=== PATIENT | male | born 1980 | race Caucasian/White ===

== ENCOUNTER 2017-01-24 23:30 | Emergency (ER) | payer MEDICAID, MEDICARE ==
[2017-01-24 23:49] VITALS: BP 139/74
[2017-01-25] MEDS ORDERED: DIPH/PERTUSS(ACELL)/TETANUS VAC/PF 0.5 ML SYR (>=10YO) IM ONE (02:50)
--- NOTE | 2017-01-25 02:52 | ER Document Report ---
ED General - General Chief Complaint: Foot Injury Stated Complaint: LEFT FOOT INJURY Notes: Patient is a pleasant 37-year-old male who presents with complaint of pain in left foot after a 50 pound he fell onto. He is too small lacerations on the dorsum of the foot. He says it hurts to bear weight. He is able to move his toes. He has good distal sensation. He denies any other injuries. TRAVEL OUTSIDE OF THE [place] IN LAST 30 DAYS: No Past Medical History - Social History Smoking Status: Never Smoker Frequency of alcohol use: None Drug Abuse: None Family History: Reviewed & Not Pertinent Renal/ Medical History: Denies: Hx Peritoneal Dialysis Review of Systems - Review of Systems Notes: My Normal Review Basic REVIEW OF SYSTEMS: CONSTITUTIONAL : Denies fever, chills, or sweats. Denies recent illness. MUSCULOSKELETAL: Pain over dorsum of left foot. SKIN: Denies rash or skin lesions. NEUROLOGICAL: Denies sensory or motor loss. ALL OTHER SYSTEMS REVIEWED AND NEGATIVE. Physical Exam - Vital signs Vitals: Temp Pulse BP Pulse Ox 98.9 F 67 139/74 H 99 01/24/17 23:48 01/24/17 23:48 01/24/17 23:48 01/24/17 23:48 - Notes Notes: General Appearance: Well nourished, alert, cooperative, no acute distress, mild obvious discomfort. Vitals: reviewed, See vital signs table. Extremities: strength 5/5 in all extremities, good pulses in all extremities, pain to palpation of the dorsum of left foot. Patient does have 2 very small superficial lacerations over the dorsum of left foot. Mild active venous bruising. No surrounding erythema. No edema. Good capillary refill in all toes. Skin: warm, dry, appropriate color, no rash Neuro: speech clear, oriented x 3, normal affect, responds appropriately to questions. Course - Vital Signs Vital signs: Temp Pulse Resp BP Pulse Ox 98.9 F 67 139/74 H 99 01/24/17 23:48 01/24/17 23:48 01/24/17 23:48 01/24/17 23:48 - Transfer of Care Notes: 01/25/17 04:20 Patient had 2 very small superficial lacerations over the dorsum of the foot. These were thoroughly irrigated. They're clean with chlorhexidine. They're then closed the door bone. Patient tolerated this well. X-ray shows no evidence of fracture. Patient still has pain with weightbearing and therefore will be given crutches. Patient's encourage follow closely with his primary care doctor. Encouraged return to ER immediately if has any redness, increased swelling, fevers, or signs of infection. Patient agrees with plan and will be discharged home. Dictation of this chart was performed using voice recognition software; therefore, there may be some unintended grammatical errors. Procedures - Laceration/Wound Repair left foot Wound length (cm): 1 Wound's Depth, Shape: Superficial, Linear Wound explored: Clean Irrigated w/ Saline (mLs): 20 Wound Repaired With: Dermabond Post-procedure NV exam normal: Yes Complications: No Discharge - Discharge Clinical Impression: Laceration Foot contusion Qualifiers: Encounter type: initial encounter Laterality: left Qualified Code(s): S90.32XA - Contusion of left foot, initial encounter Condition: Good Disposition: HOME, SELF-CARE Additional Instructions: Please use the crutches until you can bear weight on your foot without significant pain. Please return to the ER immediately if you develop redness, increased swelling, or any signs of infection in your foot. Forms: Return to Work Referrals: ALTAGRACIA JORDAN MD [Primary Care Provider] - Follow up in 3-5 days
== END 2017-01-25 04:30 | disposition home or self-care (01) ==
LOC: ER 23:30
DX: S91.312A Laceration without foreign body, left foot, initial encounter (principal); W20.8XXA Other cause of strike by thrown, projected or falling object, initial encounter
CPT/HCPCS: 99283

== ENCOUNTER 2018-09-10 07:43 | Inpatient (IN) | payer SELFPAY ==
[2018-09-10] MEDS ORDERED: IPRATROPIUM/ALBUTEROL 0.5-2.5 MG/3 ML AMPUL NEB ONE (08:30)
[2018-09-10] MEDS ORDERED: ACETAMINOPHEN WITH CODEINE #3 TABLET PO ONE (08:30)
[2018-09-10] MEDS ORDERED: DEXAMETHASONE SOD PHOS INJ 10 MG/1 ML VIAL IV ONE (08:31)
--- NOTE | 2018-09-10 08:38 | ER Document Report ---
ED Respiratory Problem - General Chief Complaint: Nausea/Vomiting/Diarrhea Stated Complaint: COUGH/CONGESTION/CHILLS/VOMITING Time Seen by Provider: 09/10/18 08:16 Mode of Arrival: Ambulatory Information source: Patient, Relative Notes: Patient is a 38-year-old male comes emergency room with a 5-day onset of feeling bad. Patient is even having a hard time talking currently because when he talks he gets into coughing fits. He also has some difficult time swallowing. He states that he started feeling sick on Wednesday he got a lot worse but Wednesday it hit him with major complications. On Wednesday he started with vomiting after coughing and then had a diarrhea today. He has a productive yellow cough. states that they did not have a thermometer at home but he has felt hot and you could feel the heat radiating from his body for the last several days. In triage patient had a temp of 100.5. He has not received any medication for fever. He also states his been unable to eat anything in the past 48 hours he is only had 4 crackers. He does smoke 2 packs of cigarettes a day and in the past 3 days he has not even had been able to do one cigarette. He is attempted to use [id number] medications like DayQuil NyQuil combination. And patient has received the influenza vaccine for this year. As stated patient also complained of having difficulty swallowing too. TRAVEL OUTSIDE OF THE [place] IN LAST 30 DAYS: No - HPI Patient complains to provider of: Cough, Hurts to breath, Short of breath Onset: Other - 5 days Duration: Continuous, Worse/persistent Initiating Event: Exposure to dust Quality of pain: Achy Severity: Moderate Pain Level: 3 Context: Smoker Short of Breath: Moderate Chest pain/discomfort: Worse with deep breaths Cough: Productive Sputum amount: Moderate Sputum color: Yellow Sputum consistency: Thick Similar symptoms previously: Yes Recently seen / treated by doctor: No - Related Data Allergies/Adverse Reactions: No Known Allergies Allergy (Unverified 09/10/18 07:49) Past Medical History - General Information source: Patient - Social History Smoking Status: Current Every Day Smoker Cigarette use (# per day): Yes Chew tobacco use (# tins/day): No - 2 packs of cigarettes a day Smoking Education Provided: Yes Frequency of alcohol use: Occasional Drug Abuse: None Lives with: Family Family History: Reviewed & Not Pertinent Patient has suicidal ideation: No Patient has homicidal ideation: No Renal/ Medical History: Denies: Hx Peritoneal Dialysis Review of Systems - Review of Systems Constitutional: Fever, Malaise, Weakness EENT: Nose congestion, Nose discharge, Sinus pressure, Sinus discharge, Throat pain, Difficulty swallowing Cardiovascular: No symptoms reported Respiratory: See HPI, Cough, Hurts to breathe, Short of breath, Wheezing Gastrointestinal: Diarrhea, Vomiting Genitourinary: No symptoms reported Male Genitourinary: No symptoms reported Musculoskeletal: No symptoms reported Skin: No symptoms reported Hematologic/Lymphatic: No symptoms reported Neurological/Psychological: No symptoms reported -: Yes All other systems reviewed and negative Physical Exam - Vital signs Vitals: Temp Pulse Resp BP Pulse Ox 100.5 F H 93 20 134/81 H 94 09/10/18 07:55 09/10/18 07:55 09/10/18 07:55 09/10/18 07:55 09/10/18 07:55 Interpretation: Hypertensive - Notes Notes: PHYSICAL EXAMINATION: GENERAL: Patient is a well-nourished well-developed 38-year-old male who is in no apparent distress on physical exam today however he does appear to be ill. Patient is so uncomfortable he does not want to talk and his does most of the talking for him. HEAD: Atraumatic, normocephalic. EYES: Pupils equal round and reactive to light, extraocular movements intact, sclera anicteric, conjunctiva are normal. ENT: Examination head and upper airway showed nasal mucosa to be moderately erythematous and edematous with some congestion in bilateral nares. Small amount of clear rhinorrhea noted. He also displays some mild frontal and maxillary sinus tenderness to palpation. Bilateral TMs bulging there is some mild cerumen in the external canal and the TMs are bulging with some minimal air -fluid levels noted. Examination of the oropharynx shows the posterior pharynx to be moderately erythematous the uvula is midline and erythematous with some edema. Visualization of the right tonsil show it to be very prominent with a superior pustule or exudate appearance. The exudate only appears in this 1 area. The tonsil appears to be bulging and no folds are seen at this time on the tonsil. It is a big round pustule type presentation. The left side appears normal. Consideration of a peritonsillar abscess is deemed appropriate at this time. The airway is currently patent. NECK: Normal range of motion, supple, patient displays some mild bilateral anterior cervical lymphadenopathy to palpation. Some mild tenderness on the lymph nodes themselves. There is no postauricular lymph nodes noted. LUNGS: Auscultation of patient's lung [place] shows he has bilateral breath sounds breath sounds are decreased throughout all lung [place]. He has some faint inspiratory expiratory wheeze more in the upper lobes bilaterally. There is no coarse rhonchi heard at this time. There is no rales noted. HEART: Regular rate and rhythm without murmurs ABDOMEN: Examination of the abdomen shows patient has bowel sounds in all 4 quads. He is nontender to palpation or percussion in any quadrant. He is moderately distended and has some tympany noted in the upper quads. This is in the supine position. Musculoskeletal: Normal range of motion, no pitting or edema. No cyanosis. NEUROLOGICAL: Normal speech, normal gait. Normal sensory, motor exams PSYCH: Normal mood, normal affect. SKIN: Warm, Dry, normal turgor, no rashes or lesions noted. Course - Re-evaluation Re-evalutation: 09/10/18 08:43 As stated in the HPI concerned there may be a few different comorbidities occurring here. Most notable of these is the possibility of a peritonsillar abscess on the right side. This could just be a presentation of strep but with the total enlargement of the right one almost touching the uvula and the left one being normal size and leaving airway patent want to make sure. Also patient having the inspiratory expiratory wheeze no focal abnormalities were heard on the auscultation of the lungs however given a 2 pack-a-day smoking with the wheeze and fever and productive yellow cough that is thick I highly considered for pneumonia. 09/10/18 12:41 I have talked to Dr. Bell my attending for today after receiving the news back the patient CT showed of the soft tissue of the neck and asymmetric mild enlargement of the right pontine tonsil without a rim-enhancing fluid collection to suggest abscess. Then secondary it is a groundglass opacities of visualized lung apices which may be secondary to infectious or inflammatory etiologies. Coupled out with the chest x-ray which shows a left lower lung opacity which may represent pneumonia in the appropriate clinical setting and patient has 3 possible areas of pneumonia versus inflammatory process he also has a tonsillitis at minimum and this is a gentleman I would not expect to come to the hospital unless he felt like he had one foot on deaths door. Given these findings she suggested we contact the hospitalist to see if we can get him admitted for inpatient therapy. This I did after going into spending the time with the patient and his discussing the options of being treated in house or out patient what they may look for is far as outcomes even offering them the ability to go outpatient first and patient contacted his mother who demanded that he come in and he is listening to his mother. So I did call the hospitalist and the have accepted patient's admission and will be down to see him in a little bit. - Vital Signs Vital signs: Temp Pulse Resp BP Pulse Ox 100.5 F H 93 20 134/81 H 94 09/10/18 07:55 09/10/18 07:55 09/10/18 07:55 09/10/18 07:55 09/10/18 07:55 - Laboratory Result Diagrams: 09/10/18 08:10 09/10/18 08:10 Laboratory results interpreted by me: 09/10/18 08:10 Potassium 3.4 L Chloride 94 L Carbon Dioxide 32 H Glucose 155 H Direct Bilirubin 0.5 H AST 73 H Discharge - Discharge Clinical Impression: Tonsillitis Pneumonia Qualifiers: Pneumonia type: due to unspecified organism Laterality: bilateral Lung location : unspecified part of lung Qualified Code(s): J18.9 - Pneumonia, unspecified organism Condition: Stable Disposition: ADMITTED INPATIENT Admitting Provider: Hospitalist Unit Admitted: Medical Floor Referrals: ALTAGRACIA JODRAN MD [HONORARY] - Follow up as needed
[2018-09-10 08:47] LABS: ABSOLUTE LYMPHOCYTES (AUTO) 1.4 10^3/uL (0.5-4.7); ABSOLUTE MONOCYTES (AUTO) 0.8 10^3/uL (0.1-1.4); ABSOLUTE NEUT (AUTO) 6.1 10^3/uL (1.7-8.2); BASOPHILS % (AUTO) 0.3 % (0-2); EOSINOPHILS % (AUTO) 0.4 % (0-6); HEMATOCRIT 44.9 % (37.9-51.0); LYMPHOCYTES % (AUTO) 16.6 % (13-45); MEAN CORPUSCULAR HEMOGLOBIN 30.3 pg (27.0-33.4); MEAN CORPUSCULAR HGB CONC 35.5 g/dL (32.0-36.0); MEAN CORPUSCULAR VOLUME 85 fl (80-97); MONOCYTES % (AUTO) 9.5 % (3-13); PLATELET COUNT 237 10^3/uL (150-450); RED BLOOD COUNT 5.27 10^6/uL (4.35-5.55); RED CELL DISTRIBUTION WIDTH 13.6 % (11.5-14.0); SEGMENTED NEUTROPHILS % (AUTO) 73.2 % (42-78); TOTAL CELLS COUNTED % (AUTO) 100 %; WHITE BLOOD COUNT 8.4 10^3/uL (4.0-10.5)
[2018-09-10 08:55] LABS: ALANINE AMINOTRANSFERASE 56 U/L (21-72); ALBUMIN 4.2 g/dL (3.5-5.0); ALKALINE PHOSPHATASE 77 U/L (38-126); ANION GAP 14 (5-19); ASPARTATE AMINO TRANSFERASE 73 U/L (17-59); BILIRUBIN,DIRECT 0.5 mg/dL (0.0-0.4); BILIRUBIN,TOTAL 1.3 mg/dL (0.2-1.3); BLOOD UREA NITROGEN 16 mg/dL (7-20); CALCIUM 9.5 mg/dL (8.4-10.2); CARBON DIOXIDE 32 mmol/L (22-30); CHLORIDE 94 mmol/L (98-107); GLUCOSE 155 mg/dL (75-110); POTASSIUM 3.4 mmol/L (3.6-5.0); SODIUM 140.3 mmol/L (137-145); TOTAL PROTEIN 7.5 g/dL (6.3-8.2)
--- NOTE | 2018-09-10 09:51 | RADIOLOGY REPORT (SQ) ---
EXAM DESCRIPTION: CT SOFT TISSUE NECK WITH COMPLETED DATE/TIME: 09/10/2018 9:30 am REASON FOR STUDY: ? right sided peritonsillar abscess COMPARISON: None. TECHNIQUE: Post IV contrasted scanning from skull base through lung apices with review of bone, soft tissue and lung windows. Reconstructed coronal and sagittal MPR images reviewed. All images stored on PACS. All CT scanners at this facility use dose modulation, iterative reconstruction, and/or weight based d osing when appropriate to reduce radiation dose to as low as reasonably achievable (ALARA). [facility]: Dose Right [facility]: CareDose [facility]: Dose Right [facility]: Teradose 4D [facility]: [employer]Home CONTRAST TYPE AND DOSE: contrast/concentration: Isovue 350.00 mg/ml; Total Contrast Delivered: 75.0 ml; Total Saline Delivered: 55.0 ml 75 mL IV of Omnipaque 350- low osmolar. RENAL FUNCTION: None required. The patient is less than 50 years old. RADIATION DOSE: CT Rad equipment meets quality standard of care and radiation dose reduction techniq ues were employed. CTDIvol: 18.5 mGy. DLP: 611 mGy-cm. . LIMITATIONS: Motion degraded exam. Metallic artifact from patient's dental hardware. FINDINGS: SKULL BASE: Intact. MAJOR SALIVARY GLANDS: No solid or cystic masses. No inflammatory changes. LYMPHADENOPATHY: Mildly asymmetric enlargement of the right palatine tonsil (series 3, image 46). N o rim enhancing fluid collection to suggest abscess. No adenopathy. MUCOSAL MASSES OR ASYMMETRY: No mucosal masses or asymmetry. LARYNX/CORDS: No abnormal findings. VASCULAR STRUCTURES: The major vessels are patent. LUNG APICES: Patchy biapical ground-glass opacities, left more pronounced than right. BONES: Intact. THYROID: Normal size. No masses. PARANASAL SINUSES: Clear. OTHER: No other significant finding. IMPRESSION: 1. Nonspecific asymmetric mild enlargement of the right palatine tonsil without a rim enhancing fluid collection to suggest abscess. 2. Ground-glass opacities of visualized lung apices which may be secondary to infectious or inflammat ory etiologies. TECHNICAL DOCUMENTATION: JOB ID: [id number] Quality ID # [id number]: Final reports with documentation of one or more dose reduction techniques (e.g., Au tomated exposure control, adjustment of the mA and/or kV according to patient size, use of iterative reconstruction technique) 2010 [employer]- All Rights Reserved Reading location - IP/workstation name: [email or web address]
--- NOTE | 2018-09-10 09:52 | RADIOLOGY REPORT (SQ) ---
EXAM DESCRIPTION: CHEST 2 VIEWS COMPLETED DATE/TIME: 09/10/2018 9:33 am REASON FOR STUDY: cough COMPARISON: Concurrent CT neck and earlier EXAM PARAMETERS: NUMBER OF VIEWS: two views TECHNIQUE: Digital Frontal and Lateral radiographic views of the chest acquired. RADIATION DOSE: NA LIMITATIONS: none FINDINGS: LUNGS AND PLEURA: Upper lobe opacities are better appreciated on the CT of the neck. Wenceslao tional left lower lobe opacity. No pleural effusion or pneumothorax. MEDIASTINUM AND HILAR STRUCTURES: No masses or contour abnormalities. HEART AND VASCULAR STRUCTURES: Heart normal size. No evidence for failure. BONES: No acute findings. HARDWARE: None in the chest. OTHER: No other significant finding. IMPRESSION: 1. Left lower lung opacity which may represent pneumonia in the appropriate clinical setting. 2. Apical lung opacities are not appreciated on this exam as seen on CT of the neck. TECHNICAL DOCUMENTATION: JOB ID: [id number] [employer]- All Rights Reserved Reading location - IP/workstation name: [email or web address]
[2018-09-10 09:54] LABS: A TYPE INFLUENZA AG NEGATIVE (NEGATIVE); B INFLUENZA AG NEGATIVE (NEGATIVE)
[2018-09-10] MEDS ORDERED: CEFTRIAXONE 1 GM/D5W RTU 1 GM/50 ML RTUPB IV ONE (11:39)
[2018-09-10] MEDS ORDERED: NORMAL SALINE 1000 ML 1,000 ML IV ONE (11:40)
[2018-09-10] MEDS ORDERED: ONDANSETRON 4 MG TAB.RAPDIS PO PRN (13:10)
[2018-09-10] MEDS ORDERED: MAG HYDROX/AL HYDROX/SIMETH SUSP 30 ML UDCUP PO PRN (13:10)
[2018-09-10] MEDS ORDERED: TEMAZEPAM 15 MG CAPSULE PO PRN (13:10)
[2018-09-10] MEDS ORDERED: MAGNESIUM HYDROXIDE SUSP 30 ML UDCUP PO PRN (13:10)
[2018-09-10] MEDS ORDERED: ONDANSETRON HCL INJ/PF 4 MG/2 ML SDV IV PRN (13:10)
[2018-09-10] MEDS ORDERED: ACETAMINOPHEN 325 MG TABLET PO PRN (13:19)
[2018-09-10] MEDS ORDERED: ACETAMINOPHEN 650 MG SUPP.RECT PR PRN (13:19)
[2018-09-10] MEDS: IPRATROPIUM BROMIDE 0.02% NEB 0.5 MG/2.5 ML AMPUL NEB SCH (15:38)
[2018-09-10] MEDS: LEVALBUTEROL HCL NEB 1.25 MG/3 ML AMPUL NEB SCH (15:38)
[2018-09-10] MEDS: HEPARIN SOD (PORCINE) 5,000 UNIT/ML 1 ML SYRINGE SUBCUT SCH ×2 (17:08→21:29)
[2018-09-10] MEDS: DOCUSATE SODIUM 100 MG CAPSULE PO SCH (17:11)
[2018-09-10] MEDS: LANSOPRAZOLE 30 MG TAB.RAP.DR PO SCH (17:16)
[2018-09-10] MEDS: LEVOFLOXACIN 750 MG TABLET PO SCH (17:17)
[2018-09-10] MEDS: POTASSI CL 20 MEQ/D5-1/2NS 1L 1,000 ML IV PRN ×2 (17:19→23:00)
[2018-09-10] MEDS ORDERED: NICOTINE 21 MG/24 HR PATCH.TD24 TD PRN (19:20)
[2018-09-10] MEDS: ALBUTEROL SULFATE 0.083% NEB 2.5 MG/3 ML AMPUL NEB PRN (19:25)
[2018-09-10] MEDS: BUDESONIDE NEB 0.5 MG/2 ML AMPUL NEB SCH (19:25)
--- NOTE | 2018-09-10 19:33 | PDOC H&P ---
History of Present Illness Admission Date/PCP: 09/10/18 12:53 MICHELL LAUREN PA-C Patient complains of: Dyspnea History of Present Illness: ROSA CAMERON is a 38 year old male who presented to the emergency room with a 5- day history of progressively worsening dyspnea accompanied by moderate to severe fever, severe generalized malaise and fatigue as well as minimally productive (thin clear to brownish mucus) harsh paroxysmal cough occasionally accompanied by posttussive emesis. He also has developed a severe sore throat and a severe headache over the last 2 days which she associates with his increased coughing. He generally smokes 11/2-2 packs of cigarettes per day and has not been able to smoke for the last 3 days because it makes his dyspnea and cough substantially worse. He rated his dyspnea as severe when he arrived at the emergency room and denied identification of ameliorating factors for his dyspnea and cough. In the emergency room he was found to have a fever 100.5 F and was also noted to have a left lower lobe infiltrate on his chest x-ray as well as right peritonsillar enlargement on exam confirmed by CT scan. With these findings the patient was admitted to the hospital for further evaluation and treatment. Past Medical History Cardiac Medical History: Denies: Coronary Artery Disease, DVT, Hypertension, Heart Murmur Pulmonary Medical History: Denies: Asthma, Chronic Obstructive Pulmonary Disease (COPD) EENT Medical History: Reports: None Neurological Medical History: Denies: Hemorrhagic CVA, Ischemic CVA, Multiple Sclerosis, Seizures Endocrine Medical History: Reports: Obesity Denies: Diabetes Mellitus Type 1, Diabetes Mellitus Type 2, Hyperthyroidism, Hypothyroidism Renal/ Medical History: Denies: Chronic Kidney Disease, Nephrolithiasis Malignancy Medical History: Reports: None GI Medical History: Denies: Cirrhosis, Crohn's Disease, Hepatitis, Peptic Ulcer Disease, Ulcerative Colitis Musculoskeltal Medical History: Denies: Arthritis, Fibromyalgia, Gout Skin Medical History: Denies: Eczema, Psoriasis Psychiatric Medical History: Reports: Depression, Tobacco Dependency Denies: Alcohol Dependency, Substance Abuse Traumatic Medical History: Reports: None Hematology: Denies: Anemia, Bleeding Tendencies Infectious Medical History: Reports: None Past Surgical History Past Surgical History: Reports: None Social History Information Source: Patient Lives with: Family Smoking Status: Smoker,Current Status Unk Frequency of Alcohol Use: Rare Hx Recreational Drug Use: No Drugs: None Hx Prescription Drug Abuse: No - Advance Directive Resuscitation Status: Full Code Surrogate healthcare decision maker:: Family History Family History: CAD, DM, Hypertension Parental Family History Reviewed: Yes Children Family History Reviewed: No Sibling(s) Family History Reviewed.: Yes Medication/Allergy Home Medications: Trazodone HCl [Desyrel 50 mg Tablet] 50 mg PO QHS 09/10/18 Venlafaxine HCl ER [Effexor Xr 75 mg Cap.sr] 75 mg PO DAILY 09/10/18 Allergies/Adverse Reactions: No Known Allergies Allergy (Unverified 09/10/18 07:49) Review of Systems Constitutional: PRESENT: as per HPI, fatigue, fever(s), headache(s), weakness, other - Malaise Eyes: ABSENT: visual disturbances, other - Ocular pain Ears: ABSENT: hearing changes, other - Ear pain Nose, Mouth, and Throat: PRESENT: as per HPI, headache(s), sore throat. ABSENT : mouth pain, vertigo Cardiovascular: PRESENT: dyspnea on exertion. ABSENT: chest pain, edema, orthropnea, palpitations Respiratory: PRESENT: cough, dyspnea, sputum - Thin clear to brownish mucus in small amounts. ABSENT: hemoptysis Gastrointestinal: ABSENT: abdominal pain, constipation, diarrhea, nausea, vomiting Genitourinary: ABSENT: dysuria, hematuria Musculoskeletal: ABSENT: deformity, joint swelling Integumentary: ABSENT: pruritus, rash Neurological: ABSENT: confusion, convulsions, memory loss, tremor(s), vertigo Psychiatric: PRESENT: depression. ABSENT: anxiety, hallucinations Endocrine: ABSENT: cold intolerance, heat intolerance Hematologic/Lymphatic: ABSENT: easy bleeding, easy bruising Allergic/Immunologic: ABSENT: seasonal rhinorrhea, other - Insect bite allergy Physical Exam Vital Signs: Temp Pulse Resp BP Pulse Ox 98.6 F 92 18 136/75 H 92 09/10/18 14:56 09/10/18 15:40 09/10/18 15:40 09/10/18 14:56 09/10/18 15:40 Intake & Output 09/08/18 09/09/18 09/10/18 23:59 23:59 23:59 Intake Total 1000 Balance 1000 Weight 142.428 kg General appearance: PRESENT: no acute distress, cooperative, obese Head exam: PRESENT: atraumatic, normocephalic Eye exam: PRESENT: conjunctiva pink, EOMI. ABSENT: scleral icterus Ear exam: PRESENT: normal external ear exam. ABSENT: bleeding, drainage Mouth exam: PRESENT: neck supple, other - Oral mucosa moist and intact, dentition in fair repair, marked right tonsillar area enlargement. Neck exam: ABSENT: JVD, lymphadenopathy, thyromegaly, tracheal deviation Respiratory exam: PRESENT: decreased breath sounds - Mild decreased breath sounds throughout all [place]., prolonged expiratory phas - Minimally prolonged expiratory phase, symmetrical, unlabored, wheezes - Mild end expiratory wheezes Cardiovascular exam: PRESENT: RRR. ABSENT: clicks, diastolic murmur, gallop, rubs, systolic murmur Pulses: PRESENT: normal radial pulses, normal dorsalis pedis pul Vascular exam: PRESENT: normal capillary refill. ABSENT: pallor GI/Abdominal exam: PRESENT: normal bowel sounds, soft. ABSENT: tenderness Rectal exam: PRESENT: deferred Extremities exam: ABSENT: joint swelling, pedal edema Musculoskeletal exam: PRESENT: full ROM, normal inspection. ABSENT: tenderness Neurological exam: PRESENT: alert, oriented to person, oriented to place, oriented to time, oriented to situation, CN II-XII grossly intact. ABSENT: motor sensory deficit Psychiatric exam: PRESENT: appropriate affect, normal mood Skin exam: PRESENT: dry, intact, warm. ABSENT: jaundice, rash, urticaria Results Impressions: Chest X-Ray 09/10/18 08:28 IMPRESSION: 1. Left lower lung opacity which may represent pneumonia in the appropriate clinical setting. 2. Apical lung opacities are not appreciated on this exam as seen on CT of the neck. Soft Tissue Neck CT 09/10/18 08:30 IMPRESSION: 1. Nonspecific asymmetric mild enlargement of the right palatine tonsil without a rim enhancing fluid collection to suggest abscess. 2. Ground-glass opacities of visualized lung apices which may be secondary to infectious or inflammatory etiologies. Assessment & Plan - Diagnosis (1) Pneumonia Qualifiers: Pneumonia type: due to unspecified organism Laterality: left Lung location: lower lobe of lung Qualified Code(s): J18.1 - Lobar pneumonia, unspecified organism Is this a current diagnosis for this admission?: Yes Plan: Patient is admitted hospital and will be treated with empiric antibiotic therapy utilizing Levaquin 750 mg p.o. daily additionally he will be treated with an aggressive pulmonary toilet utilizing Xopenex, Atrovent, Mucomyst and Pulmicort. He will also receive steroid therapy using prednisone. His fever will be treated with acetaminophen 650 mg p.o. every 4 hours as needed. (2) Tonsillitis Is this a current diagnosis for this admission?: Yes Plan: Patient's tonsillitis will be treated along with his pneumonia utilizing Levaquin 750 mg p.o. daily and prednisone 40 mg daily. (3) Tobacco use disorder, moderate, dependence Is this a current diagnosis for this admission?: Yes Plan: Patient will have available a nicotine patch if he is to use 1 to reduce nicotine cravings. I have advised the patient to discontinue smoking and smoking cessation counseling has been given in the short 3-5-minute counseling session. (4) Obesity (BMI 35.0-39.9 without comorbidity) Is this a current diagnosis for this admission?: Yes Plan: Patient will be encouraged to consider discussing weight loss with his primary care provider. A dietitian will evaluate and adoption counselor the patient on weight loss goals and dietary advice. - Time Time Spent: 30 to 50 Minutes Smoking Cessation Education: 3 to 10 minutes Medications reviewed and adjusted accordingly: Yes Anticipated discharge: Home Within: within 72 hours - Inpatient Certification Based on my medical assessment, after consideration of the patient's comorbidities, presenting symptoms, or acuity I expect that the services needed warrant INPATIENT care.: Yes I certify that my determination is in accordance with my understanding of Medicare's requirements for reasonable and necessary INPATIENT services [42 CFR 412.3e].: Yes Medical Necessity: Significant Comorbidiites Make Outpatient Treatment Too Risky , Need for Nebulizer Therapy and Monitoring of Response
[2018-09-11] MEDS: IPRATROPIUM BROMIDE 0.02% NEB 0.5 MG/2.5 ML AMPUL NEB SCH ×3 (00:32→15:26)
[2018-09-11] MEDS: LEVALBUTEROL HCL NEB 1.25 MG/3 ML AMPUL NEB SCH ×3 (00:32→15:26)
[2018-09-11] MEDS: POTASSI CL 20 MEQ/D5-1/2NS 1L 1,000 ML IV PRN (06:10)
[2018-09-11] MEDS: LANSOPRAZOLE 30 MG TAB.RAP.DR PO SCH ×2 (06:12→17:19)
[2018-09-11] MEDS: HEPARIN SOD (PORCINE) 5,000 UNIT/ML 1 ML SYRINGE SUBCUT SCH ×3 (06:12→21:08)
[2018-09-11 07:02] LABS: ABSOLUTE LYMPHOCYTES (AUTO) 1.2 10^3/uL (0.5-4.7); ABSOLUTE MONOCYTES (AUTO) 0.8 10^3/uL (0.1-1.4); BASOPHILS % (AUTO) 0.1 % (0-2); EOSINOPHILS % (AUTO) 0.1 % (0-6); HEMATOCRIT 45.6 % (37.9-51.0); HEMOGLOBIN 16.1 g/dL (13.5-17.0); LYMPHOCYTES % (AUTO) 9.2 % (13-45); MEAN CORPUSCULAR HEMOGLOBIN 30.1 pg (27.0-33.4); MEAN CORPUSCULAR HGB CONC 35.4 g/dL (32.0-36.0); MEAN CORPUSCULAR VOLUME 85 fl (80-97); MONOCYTES % (AUTO) 5.8 % (3-13); PLATELET COUNT 298 10^3/uL (150-450); RED BLOOD COUNT 5.36 10^6/uL (4.35-5.55); RED CELL DISTRIBUTION WIDTH 13.6 % (11.5-14.0); SEGMENTED NEUTROPHILS % (AUTO) 84.8 % (42-78); TOTAL CELLS COUNTED % (AUTO) 100 %; WHITE BLOOD COUNT 12.9 10^3/uL (4.0-10.5)
[2018-09-11 07:25] LABS: ANION GAP 18 (5-19); BLOOD UREA NITROGEN 13 mg/dL (7-20); CALCIUM 9.8 mg/dL (8.4-10.2); CARBON DIOXIDE 28 mmol/L (22-30); CHLORIDE 99 mmol/L (98-107); GLUCOSE 124 mg/dL (75-110); POTASSIUM 3.5 mmol/L (3.6-5.0); SODIUM 145.1 mmol/L (137-145)
[2018-09-11 07:36] LABS: FREE T3 2.79 pg/mL (2.77-5.27); FREE T4 (FREE THYROXINE) 1.69 ng/dL (0.78-2.19)
[2018-09-11 07:49] LABS: THYROID STIMULATING HORMONE 0.56 uIU/mL (0.47-4.68)
[2018-09-11] MEDS: BUDESONIDE NEB 0.5 MG/2 ML AMPUL NEB SCH ×2 (08:09→20:42)
[2018-09-11] MEDS: PREDNISONE 20 MG TABLET PO SCH (09:15)
[2018-09-11] MEDS: LEVOFLOXACIN 750 MG TABLET PO SCH (09:15)
[2018-09-11] MEDS: DOCUSATE SODIUM 100 MG CAPSULE PO SCH ×2 (09:16→17:40)
[2018-09-11 09:31] LABS: URINE AMPHETAMINES SCREEN NEGATIVE; URINE BARBITURATES SCREEN NEGATIVE; URINE BENZODIAZEPINES SCREEN NEGATIVE; URINE COCAINE SCREEN NEGATIVE; URINE MARIJUANA (THC) SCREEN NEGATIVE; URINE METHADONE SCREEN NEGATIVE; URINE PHENCYCLIDINE SCREEN NEGATIVE
[2018-09-11] MEDS: VENLAFAXINE HCL 75 MG TABLET PO SCH (10:33)
--- NOTE | 2018-09-11 17:45 | PDOC PROGRESS REPORT ---
Subjective Progress Note for:: 09/11/18 Subjective:: ROSA CAMERON is a 38 year old male who presented to the emergency room with a 5- day history of progressively worsening dyspnea accompanied by moderate to severe fever, severe generalized malaise and fatigue as well as minimally productive (thin clear to brownish mucus) harsh paroxysmal cough occasionally accompanied by posttussive emesis. He also has developed a severe sore throat and a severe headache over the last 2 days which she associates with his increased coughing. He generally smokes 11/2-2 packs of cigarettes per day and has not been able to smoke for the last 3 days because it makes his dyspnea and cough substantially worse. He rated his dyspnea as severe when he arrived at the emergency room and denied identification of ameliorating factors for his dyspnea and cough. In the emergency room he was found to have a fever 100.5 F and was also noted to have a left lower lobe infiltrate on his chest x-ray as well as right peritonsillar enlargement on exam confirmed by CT scan. With these findings the patient was admitted to the hospital for further evaluation and treatment. 09/11/2018: Mr. Cameron states he is feeling considerably better today he is breathing and able to get up and go to the bathroom and be active within the room without significant dyspnea. He continues to have mild dyspnea on more significant exertion. His coughing has improved and his sore throat is considerably better. He has not had a posttussive emesis since coming to his hospital bed. He is tolerating the nebulizer therapy and feels as though he is making a significant enough improvement that he could go home today. After his evaluation I have discussed with him the fact that he would probably do better to give treatment here 1 more day and then perhaps we can line up a nebulizer unit for him to use at home and I would be happy to discharge him at that time. Reason For Visit: ACUTE FEBRILE ILLNESS Physical Exam Vital Signs: Temp Pulse Resp BP Pulse Ox 98.3 F 70 18 131/76 H 95 09/11/18 16:00 09/11/18 16:00 09/11/18 16:00 09/11/18 16:00 09/11/18 16:00 Intake & Output 09/09/18 09/10/18 09/11/18 23:59 23:59 23:59 Intake Total 1949 2806 Output Total 300 Balance 1949 2506 Weight 142.428 kg 145.4 kg General appearance: PRESENT: no acute distress, cooperative Head exam: PRESENT: atraumatic, normocephalic Eye exam: PRESENT: conjunctiva pink, EOMI Ear exam: PRESENT: normal external ear exam. ABSENT: drainage Mouth exam: PRESENT: neck supple, other - Oral mucosa is moist and intact dentition is fair Neck exam: ABSENT: JVD, tracheal deviation Respiratory exam: PRESENT: decreased breath sounds - Decreased breath sounds noted throughout all [place]., prolonged expiratory phas - Minimally prolonged expiratory phase is present, rales - Few coarse rales are heard in the left lateral and posterior lung [place], symmetrical, unlabored, wheezes - Mild expiratory wheezes are noted. ABSENT: rhonchi Cardiovascular exam: PRESENT: RRR. ABSENT: clicks, gallop, rubs Vascular exam: PRESENT: normal capillary refill. ABSENT: pallor GI/Abdominal exam: PRESENT: normal bowel sounds, soft Rectal exam: PRESENT: deferred Extremities exam: ABSENT: joint swelling, pedal edema Musculoskeletal exam: PRESENT: ambulatory, full ROM, normal inspection Neurological exam: PRESENT: alert, oriented to person, oriented to place, oriented to time, oriented to situation, CN II-XII grossly intact. ABSENT: motor sensory deficit Psychiatric exam: PRESENT: appropriate affect, normal mood Skin exam: PRESENT: dry, intact, warm Results Laboratory Results: 09/11/18 06:09 09/11/18 06:09 09/11/18 09/11/18 09/11/18 06:09 06:09 06:09 WBC 12.9 H RBC 5.36 Hgb 16.1 Hct 45.6 MCV 85 MCH 30.1 MCHC 35.4 RDW 13.6 Plt Count 298 Seg Neutrophils % 84.8 H Lymphocytes % 9.2 L Monocytes % 5.8 Eosinophils % 0.1 Basophils % 0.1 Absolute Neutrophils 11.0 H Absolute Lymphocytes 1.2 Absolute Monocytes 0.8 Absolute Eosinophils 0.0 Absolute Basophils 0.0 Sodium 145.1 H Potassium 3.5 L Chloride 99 Carbon Dioxide 28 Anion Gap 18 BUN 13 Creatinine 0.76 Est GFR ( Amer) > 60 Est GFR (Non-Af Amer) > 60 Glucose 124 H Calcium 9.8 Magnesium 2.6 H TSH 0.56 Free T4 1.69 Free T3 pg/mL 2.79 Impressions: Chest X-Ray 09/10/18 08:28 IMPRESSION: 1. Left lower lung opacity which may represent pneumonia in the appropriate clinical setting. 2. Apical lung opacities are not appreciated on this exam as seen on CT of the neck. Soft Tissue Neck CT 09/10/18 08:30 IMPRESSION: 1. Nonspecific asymmetric mild enlargement of the right palatine tonsil without a rim enhancing fluid collection to suggest abscess. 2. Ground-glass opacities of visualized lung apices which may be secondary to infectious or inflammatory etiologies. Assessment & Plan - Diagnosis (1) Pneumonia Qualifiers: Pneumonia type: due to unspecified organism Laterality: left Lung location: lower lobe of lung Qualified Code(s): J18.1 - Lobar pneumonia, unspecified organism Is this a current diagnosis for this admission?: Yes Plan: Patient is admitted hospital and will be treated with empiric antibiotic therapy utilizing Levaquin 750 mg p.o. daily additionally he will be treated with an aggressive pulmonary toilet utilizing Xopenex, Atrovent, Mucomyst and Pulmicort. He will also receive steroid therapy using prednisone. His fever will be treated with acetaminophen 650 mg p.o. every 4 hours as needed. (2) Tonsillitis Is this a current diagnosis for this admission?: Yes Plan: Patient's tonsillitis will be treated along with his pneumonia utilizing Levaquin 750 mg p.o. daily and prednisone 40 mg daily. (3) Tobacco use disorder, moderate, dependence Is this a current diagnosis for this admission?: Yes Plan: Patient will have available a nicotine patch if he is to use 1 to reduce nicotine cravings. I have advised the patient to discontinue smoking and smoking cessation counseling has been given in the short 3-5-minute counseling session. (4) Obesity (BMI 35.0-39.9 without comorbidity) Is this a current diagnosis for this admission?: Yes Plan: Patient will be encouraged to consider discussing weight loss with his primary care provider. A dietitian will evaluate and vocational rehabilitation counselor the patient on weight loss goals and dietary advice. - Time Time Spent with patient: 15-24 minutes Medications reviewed and adjusted accordingly: Yes Anticipated discharge: Home Within: within 24 hours
[2018-09-11] MEDS: ALBUTEROL SULFATE 0.083% NEB 2.5 MG/3 ML AMPUL NEB PRN (20:42)
[2018-09-11] MEDS ORDERED: TRAZODONE HCL 50 MG TABLET PO SCH (22:00)
[2018-09-12] MEDS: IPRATROPIUM BROMIDE 0.02% NEB 0.5 MG/2.5 ML AMPUL NEB SCH ×2 (00:26→07:46)
[2018-09-12] MEDS: LEVALBUTEROL HCL NEB 1.25 MG/3 ML AMPUL NEB SCH ×2 (00:26→07:46)
[2018-09-12] MEDS: HEPARIN SOD (PORCINE) 5,000 UNIT/ML 1 ML SYRINGE SUBCUT SCH ×2 (05:07→12:59)
[2018-09-12 05:29] LABS: ABSOLUTE LYMPHOCYTES (AUTO) 2.3 10^3/uL (0.5-4.7); ABSOLUTE MONOCYTES (AUTO) 0.5 10^3/uL (0.1-1.4); ABSOLUTE NEUT (AUTO) 6.3 10^3/uL (1.7-8.2); BASOPHILS % (AUTO) 0.2 % (0-2); EOSINOPHILS % (AUTO) 0.4 % (0-6); HEMATOCRIT 42.4 % (37.9-51.0); HEMOGLOBIN 14.8 g/dL (13.5-17.0); LYMPHOCYTES % (AUTO) 24.9 % (13-45); MEAN CORPUSCULAR HEMOGLOBIN 30.3 pg (27.0-33.4); MEAN CORPUSCULAR VOLUME 87 fl (80-97); MONOCYTES % (AUTO) 5.8 % (3-13); PLATELET COUNT 298 10^3/uL (150-450); RED CELL DISTRIBUTION WIDTH 13.6 % (11.5-14.0); SEGMENTED NEUTROPHILS % (AUTO) 68.7 % (42-78); TOTAL CELLS COUNTED % (AUTO) 100 %; WHITE BLOOD COUNT 9.1 10^3/uL (4.0-10.5)
[2018-09-12 06:04] LABS: ANION GAP 14 (5-19); BLOOD UREA NITROGEN 14 mg/dL (7-20); CALCIUM 9.4 mg/dL (8.4-10.2); CARBON DIOXIDE 30 mmol/L (22-30); CHLORIDE 102 mmol/L (98-107); GLUCOSE 105 mg/dL (75-110); POTASSIUM 3.9 mmol/L (3.6-5.0); SODIUM 145.7 mmol/L (137-145)
[2018-09-12] MEDS: BUDESONIDE NEB 0.5 MG/2 ML AMPUL NEB SCH (07:46)
[2018-09-12] MEDS: LANSOPRAZOLE 30 MG TAB.RAP.DR PO SCH (08:36)
[2018-09-12] MEDS: PREDNISONE 20 MG TABLET PO SCH (09:53)
[2018-09-12] MEDS: LEVOFLOXACIN 750 MG TABLET PO SCH (09:54)
[2018-09-12] MEDS: VENLAFAXINE HCL 75 MG TABLET PO SCH (09:55)
[2018-09-12] MEDS: DOCUSATE SODIUM 100 MG CAPSULE PO SCH (09:55)
--- NOTE | 2018-09-12 11:52 | PDOC DISCHARGE SUMMARY ---
General - Admit/Disc Date/PCP Admission Date/Primary Care Provider: 09/10/18 12:53 MICHELL LAUREN PA-C Discharge Date: 09/12/18 - Discharge Diagnosis (1) Pneumonia Is this a current diagnosis for this admission?: Yes Summary: Patient is admitted hospital and will be treated with empiric antibiotic therapy utilizing Levaquin 750 mg p.o. daily additionally he will be treated with an aggressive pulmonary toilet utilizing Xopenex, Atrovent, Mucomyst and Pulmicort. He will also receive steroid therapy using prednisone. His fever will be treated with acetaminophen 650 mg p.o. every 4 hours as needed. (2) Tonsillitis Is this a current diagnosis for this admission?: Yes Summary: Patient's tonsillitis will be treated along with his pneumonia utilizing Levaquin 750 mg p.o. daily and prednisone 40 mg daily. (3) Tobacco use disorder, moderate, dependence Is this a current diagnosis for this admission?: Yes Summary: Patient will have available a nicotine patch if he is to use 1 to reduce nicotine cravings. I have advised the patient to discontinue smoking and smoking cessation counseling has been given in the short 3-5-minute counseling session. (4) Obesity (BMI 35.0-39.9 without comorbidity) Is this a current diagnosis for this admission?: Yes Summary: Patient will be encouraged to consider discussing weight loss with his primary care provider. A dietitian will evaluate and vp & general counsel the patient on weight loss goals and dietary advice. - Additional Information Resuscitation Status: Full Code Discharge Diet: Regular Discharge Activity: Activity As Tolerated, Walk Frequently Prescriptions: Ipratropium [place] [Atrovent 0.02% Neb 0.5 mg/2.5 ml Ampul] 0.5 mg NEB TID 10 Days #30 vial.neb Levalbuterol HCl [Xopenex Neb 1.25 mg/3 ml Ampul] 1.25 mg NEB TID 10 Days #30 vial.neb Levofloxacin [Levaquin 750 mg Tablet] 750 mg PO DAILY 4 Days #4 tablet Prednisone [Deltasone 20 mg Tablet] 40 mg PO PCBRKFST 2 Days #4 tablet Home Medications: Trazodone HCl [Desyrel 50 mg Tablet] 50 mg PO QHS 09/10/18 Venlafaxine HCl ER [Effexor Xr 75 mg Cap.sr] 75 mg PO DAILY 09/10/18 Ipratropium [place] [Atrovent 0.02% Neb 0.5 mg/2.5 ml Ampul] 0.5 mg NEB TID 10 Days #30 vial.neb 09/12/18 Levalbuterol HCl [Xopenex Neb 1.25 mg/3 ml Ampul] 1.25 mg NEB TID 10 Days #30 vial.neb 09/12/18 Levofloxacin [Levaquin 750 mg Tablet] 750 mg PO DAILY 4 Days #4 tablet 09/12/18 Prednisone [Deltasone 20 mg Tablet] 40 mg PO PCBRKFST 2 Days #4 tablet 09/12/18 History of Present Illness Patient complains of: Dyspnea History of Present Illness: ROSA ASH is a 38 year old male who presented to the emergency room with a 5- day history of progressively worsening dyspnea accompanied by moderate to severe fever, severe generalized malaise and fatigue as well as minimally productive (thin clear to brownish mucus) harsh paroxysmal cough occasionally accompanied by posttussive emesis. He also has developed a severe sore throat and a severe headache over the last 2 days which she associates with his increased coughing. He generally smokes 11/2-2 packs of cigarettes per day and has not been able to smoke for the last 3 days because it makes his dyspnea and cough substantially worse. He rated his dyspnea as severe when he arrived at the emergency room and denied identification of ameliorating factors for his dyspnea and cough. In the emergency room he was found to have a fever 100.5 F and was also noted to have a left lower lobe infiltrate on his chest x-ray as well as right peritonsillar enlargement on exam confirmed by CT scan. With these findings the patient was admitted to the hospital for further evaluation and treatment. Hospital Course Hospital Course: 09/11/2018: Mr. Ash states he is feeling considerably better today he is breathing and able to get up and go to the bathroom and be active within the room without significant dyspnea. He continues to have mild dyspnea on more significant exertion. His coughing has improved and his sore throat is considerably better. He has not had a posttussive emesis since coming to his hospital bed. He is tolerating the nebulizer therapy and feels as though he is making a significant enough improvement that he could go home today. After his evaluation I have discussed with him the fact that he would probably do better to give treatment here 1 more day and then perhaps we can line up a nebulizer unit for him to use at home and I would be happy to discharge him at that time. Physical Exam Vital Signs: Temp Pulse Resp BP Pulse Ox 98.1 F 61 20 137/76 H 96 09/12/18 08:00 09/12/18 08:00 09/12/18 08:00 09/12/18 08:00 09/12/18 08:00 Intake & Output 09/10/18 09/11/18 09/12/18 23:59 23:59 23:59 Intake Total 1948 3397 236 Output Total 300 Balance 1948 3097 236 Weight 142.428 kg 145.4 kg General appearance: PRESENT: no acute distress, cooperative, obese Head exam: PRESENT: atraumatic, normocephalic Eye exam: PRESENT: conjunctiva pink, EOMI Ear exam: PRESENT: normal external ear exam Mouth exam: PRESENT: neck supple Respiratory exam: PRESENT: clear to auscultation delisa, decreased breath sounds - Mildly decreased breath sounds throughout all [place], symmetrical, unlabored Cardiovascular exam: PRESENT: RRR. ABSENT: clicks, gallop, rubs Vascular exam: PRESENT: normal capillary refill GI/Abdominal exam: PRESENT: normal bowel sounds, soft Rectal exam: PRESENT: deferred Extremities exam: ABSENT: joint swelling, pedal edema Musculoskeletal exam: PRESENT: ambulatory, full ROM, normal inspection Neurological exam: PRESENT: alert, oriented to person, oriented to place, oriented to time, oriented to situation, CN II-XII grossly intact. ABSENT: motor sensory deficit Psychiatric exam: PRESENT: appropriate affect, normal mood Skin exam: PRESENT: dry, intact, warm Results Laboratory Results: 09/12/18 04:44 09/12/18 04:44 09/12/18 09/12/18 04:44 04:44 WBC 9.1 RBC 4.90 Hgb 14.8 Hct 42.4 MCV 87 MCH 30.3 MCHC 35.0 RDW 13.6 Plt Count 298 Seg Neutrophils % 68.7 Lymphocytes % 24.9 Monocytes % 5.8 Eosinophils % 0.4 Basophils % 0.2 Absolute Neutrophils 6.3 Absolute Lymphocytes 2.3 Absolute Monocytes 0.5 Absolute Eosinophils 0.0 Absolute Basophils 0.0 Sodium 145.7 H Potassium 3.9 Chloride 102 Carbon Dioxide 30 Anion Gap 14 BUN 14 Creatinine 0.82 Est GFR ( Amer) > 60 Est GFR (Non-Af Amer) > 60 Glucose 105 Calcium 9.4 Magnesium 2.5 H Impressions: Chest X-Ray 09/10/18 08:28 IMPRESSION: 1. Left lower lung opacity which may represent pneumonia in the appropriate clinical setting. 2. Apical lung opacities are not appreciated on this exam as seen on CT of the neck. Soft Tissue Neck CT 09/10/18 08:30 IMPRESSION: 1. Nonspecific asymmetric mild enlargement of the right palatine tonsil without a rim enhancing fluid collection to suggest abscess. 2. Ground-glass opacities of visualized lung apices which may be secondary to infectious or inflammatory etiologies. Qualifiers - * PATIENT BEING DISCHARGED WITH ANY OF THE FOLLOWING DIAGNOSIS: No Plan Discharge Plan: Discharged home in improved and stable condition Time Spent: Greater than 30 Minutes
[2018-09-12 12:07] VITALS: BP 124/71
[2018-09-12] MEDS ORDERED: ONDANSETRON HCL INJ/PF 4 MG/2 ML SDV IV PRN (15:00)
[2018-09-12] MEDS ORDERED: ONDANSETRON 4 MG TAB.RAPDIS PO PRN (15:00)
[2018-09-12] MEDS ORDERED: LANSOPRAZOLE 30 MG TAB.RAP.DR PO SCH (17:00)
== END 2018-09-12 13:52 | disposition home or self-care (01) | DRG 195 ==
LOC: ER 07:43 → EH 12:53 → 5 14:54
PROVIDERS: ADMIT Hospitalist; ATTEND Hospitalist
PROC: 3E0F73Z Introduction of Anti-inflammatory into Respiratory Tract, Via Natural or Artificial Opening (ICD-10-PCS; principal; 2018-09-10)
DX: J18.1 Lobar pneumonia, unspecified organism (principal); J03.90 Acute tonsillitis, unspecified; F17.210 Nicotine dependence, cigarettes, uncomplicated; E66.9 Obesity, unspecified; Z68.38 Body mass index [BMI] 38.0-38.9, adult; F32.9 Major depressive disorder, single episode, unspecified; Z79.899 Other long term (current) drug therapy; Z83.3 Family history of diabetes mellitus; Z82.49 Family history of ischemic heart disease and other diseases of the circulatory system
CPT/HCPCS: 36415; 70491; 71046; 80048; 80053; 80307; 83036; 83735; 84439; 84443; 84481; 85025; 87040; 87070; 87804; 87880; 94640; 96365; 96375; 99285; J0696; J1100; J3480; J3490; J7030; J7512; J7620

== ENCOUNTER 2018-10-02 14:51 | Emergency (ER) | payer SELFPAY ==
--- NOTE | 2018-10-02 15:17 | ER Document Report ---
ED Medical Screen (RME) - General Chief Complaint: Cough Stated Complaint: SORE THROAT Time Seen by Provider: 10/02/18 15:15 Mode of Arrival: Ambulatory Information source: Patient TRAVEL OUTSIDE OF THE [place] IN LAST 30 DAYS: No - HPI Patient complains to provider of: cough; ST Onset: Other - pt admitted here earlier this month for ?PNA and throat abscess. Pt feels only slightly better and wants re-evaluation. - Related Data Allergies/Adverse Reactions: No Known Allergies Allergy (Verified 10/02/18 14:52) Past Medical History - Past Medical History Cardiac Medical History: Denies: Hx Coronary Artery Disease, Hx DVT, Hx Hypertension, Hx Heart Murmur Pulmonary Medical History: Denies: Hx Asthma, Hx COPD Neurological Medical History: Denies: Hx Seizures Endocrine Medical History: Denies: Hx Diabetes Mellitus Type 1, Hx Diabetes Mellitus Type 2, Hx Hyperthyroidism, Hx Hypothyroidism Renal/ Medical History: Denies: Hx Peritoneal Dialysis GI Medical History: Denies: Hx Cirrhosis, Hx Crohn's Disease, Hx Hepatitis, Hx Ulcerative Colitis Musculoskeltal Medical History: Denies Hx Arthritis, Denies Hx Fibromyalgia, Denies Hx Gout Skin Medical History: Denies Hx Eczema, Denies Hx Psoriasis Psychiatric Medical History: Reports: Hx Depression Infectious Medical History: Denies: Hx Hepatitis Physical Exam - Vital signs Vitals: Temp Pulse Resp BP Pulse Ox 98.4 F 86 16 143/79 H 96 10/02/18 14:55 10/02/18 14:55 10/02/18 14:55 10/02/18 14:55 10/02/18 14:55 Course - Vital Signs Vital signs: Temp Pulse Resp BP Pulse Ox 98.4 F 86 16 143/79 H 96 10/02/18 14:55 10/02/18 14:55 10/02/18 14:55 10/02/18 14:55 10/02/18 14:55 Doctor's Discharge - Discharge Referrals: MICHELL LAUREN PA-C [Primary Care Provider] - Follow up as needed
[2018-10-02 15:37] LABS: ABSOLUTE EOSINOPHILS # (AUTO) 0.1 10^3/uL (0.0-0.6); ABSOLUTE LYMPHOCYTES (AUTO) 2.4 10^3/uL (0.5-4.7); ABSOLUTE MONOCYTES (AUTO) 0.5 10^3/uL (0.1-1.4); ABSOLUTE NEUT (AUTO) 4.7 10^3/uL (1.7-8.2); BASOPHILS % (AUTO) 0.5 % (0-2); EOSINOPHILS % (AUTO) 1.2 % (0-6); HEMATOCRIT 46.6 % (37.9-51.0); HEMOGLOBIN 16.2 g/dL (13.5-17.0); LYMPHOCYTES % (AUTO) 31.4 % (13-45); MEAN CORPUSCULAR HEMOGLOBIN 30.1 pg (27.0-33.4); MEAN CORPUSCULAR HGB CONC 34.8 g/dL (32.0-36.0); MEAN CORPUSCULAR VOLUME 87 fl (80-97); PLATELET COUNT 287 10^3/uL (150-450); RED BLOOD COUNT 5.38 10^6/uL (4.35-5.55); RED CELL DISTRIBUTION WIDTH 13.5 % (11.5-14.0); SEGMENTED NEUTROPHILS % (AUTO) 59.9 % (42-78); TOTAL CELLS COUNTED % (AUTO) 100 %; WHITE BLOOD COUNT 7.8 10^3/uL (4.0-10.5)
[2018-10-02 15:47] LABS: ALANINE AMINOTRANSFERASE 36 U/L (21-72); ALBUMIN 4.4 g/dL (3.5-5.0); ALKALINE PHOSPHATASE 78 U/L (38-126); ANION GAP 10 (5-19); ASPARTATE AMINO TRANSFERASE 26 U/L (17-59); BILIRUBIN,DIRECT 0.3 mg/dL (0.0-0.4); BLOOD UREA NITROGEN 13 mg/dL (7-20); CALCIUM 9.8 mg/dL (8.4-10.2); CARBON DIOXIDE 26 mmol/L (22-30); CHLORIDE 103 mmol/L (98-107); GLUCOSE 138 mg/dL (75-110); POTASSIUM 4.1 mmol/L (3.6-5.0); SODIUM 138.6 mmol/L (137-145); TOTAL PROTEIN 7.2 g/dL (6.3-8.2)
[2018-10-02] MEDS ORDERED: LIDOCAINE 1% INJ-PF (10 MG/ML) 30 ML SDV NEB ONE (16:02)
[2018-10-02] MEDS ORDERED: IPRATROPIUM/ALBUTEROL 0.5-2.5 MG/3 ML AMPUL NEB ONE (16:02)
--- NOTE | 2018-10-02 16:02 | RADIOLOGY REPORT (SQ) ---
EXAM DESCRIPTION: CHEST 2 VIEWS COMPLETED DATE/TIME: 10/02/2018 3:47 pm REASON FOR STUDY: cough COMPARISON: 09/10/2018 EXAM PARAMETERS: NUMBER OF VIEWS: two views TECHNIQUE: Digital Frontal and Lateral radiographic views of the chest acquired. RADIATION DOSE: NA LIMITATIONS: none FINDINGS: LUNGS AND PLEURA: No opacities, masses or pneumothorax. No pleural effusion. MEDIASTINUM AND HILAR STRUCTURES: No masses or contour abnormalities. HEART AND VASCULAR STRUCTURES: Heart normal size. No evidence for failure. BONES: No acute findings. HARDWARE: None in the chest. OTHER: No other significant finding. IMPRESSION: No acute abnormality of the lungs. No focal airspace opacity. Previously seen left low er lobe opacity is resolved. TECHNICAL DOCUMENTATION: JOB ID: [id number] [employer]- All Rights Reserved Reading location - IP/workstation name: [email or web address]
--- NOTE | 2018-10-02 16:42 | ER Document Report ---
ED General - General Chief Complaint: Cough Stated Complaint: SORE THROAT Time Seen by Provider: 10/02/18 15:15 Mode of Arrival: Ambulatory TRAVEL OUTSIDE OF THE [place] IN LAST 30 DAYS: No - HPI Patient complains to provider of: Sore throat cough Notes: Patient coming in for sore throat and cough. Patient was admitted to the hospital with the beginning of the month for pneumonia and tonsillitis. Patient was discharged home on Levaquin patient states he does continue to smoke however has decreased approximately 8-12 cigarettes a day. Patient states he did initially feel better but now sore throat is returning also he is having a cough. Patient states cough with some brown sputum and clear sputum. Denies any fevers or chills. Patient denies any other antibiotics other than Levaquin given to him here in the hospital. Patient states he did complete his antibiotic course. Patient denies any other sick contacts other than his significant other who is at bedside coughing. Patient resting comfortably upon my evaluation. Patient states he does continue to have a sore throat denies any lymph nodes patient is unaware of his flu status - Related Data Allergies/Adverse Reactions: No Known Allergies Allergy (Verified 10/02/18 14:52) Past Medical History - General Information source: Patient - Social History Smoking Status: Current Every Day Smoker Frequency of alcohol use: Rare Drug Abuse: None Family History: CAD, DM, Hypertension Patient has suicidal ideation: No Patient has homicidal ideation: No - Past Medical History Cardiac Medical History: Denies: Hx Coronary Artery Disease, Hx DVT, Hx Hypertension, Hx Heart Murmur Pulmonary Medical History: Denies: Hx Asthma, Hx COPD Neurological Medical History: Denies: Hx Seizures Endocrine Medical History: Denies: Hx Diabetes Mellitus Type 1, Hx Diabetes Mellitus Type 2, Hx Hyperthyroidism, Hx Hypothyroidism Renal/ Medical History: Denies: Hx Peritoneal Dialysis GI Medical History: Denies: Hx Cirrhosis, Hx Crohn's Disease, Hx Hepatitis, Hx Ulcerative Colitis Musculoskeletal Medical History: Denies Hx Arthritis, Denies Hx Fibromyalgia, Denies Hx Gout Skin Medical History: Denies Hx Eczema, Denies Hx Psoriasis Psychiatric Medical History: Reports: Hx Depression Infectious Medical History: Denies: Hx Hepatitis Review of Systems - Review of Systems Constitutional: No symptoms reported EENT: No symptoms reported, Throat pain Cardiovascular: No symptoms reported Respiratory: Cough, Short of breath Gastrointestinal: No symptoms reported Genitourinary: No symptoms reported Male Genitourinary: No symptoms reported Musculoskeletal: No symptoms reported Skin: No symptoms reported Hematologic/Lymphatic: No symptoms reported Neurological/Psychological: No symptoms reported -: Yes All other systems reviewed and negative Physical Exam - Vital signs Vitals: Temp Pulse Resp BP Pulse Ox 98.4 F 86 16 143/79 H 96 10/02/18 14:55 10/02/18 14:55 10/02/18 14:55 10/02/18 14:55 10/02/18 14:55 Interpretation: Normal - General General appearance: Appears well, Alert - HEENT Head: Normocephalic, Atraumatic Eyes: Normal Conjunctiva: Normal Pupils: PERRL Ears: Normal External canal: Normal Tympanic membrane: Normal Sinus: Normal Nasal: Normal Mouth/Lips: Normal Mucous membranes: Normal Pharynx: Erythema - Slight erythema posterior pharynx no signs of tonsillar abscess no signs of tonsillar hypertrophy Neck: Normal - Respiratory Respiratory status: No respiratory distress Chest status: Nontender Breath sounds: Normal Chest palpation: Normal - Cardiovascular Rhythm: Regular Heart sounds: Normal auscultation Murmur: No - Abdominal Inspection: Normal Distension: No distension Bowel sounds: Normal Tenderness: Nontender Organomegaly: No organomegaly - Back Back: Normal, Nontender - Extremities General upper extremity: Normal inspection, Nontender, Normal color, Normal ROM, Normal temperature General lower extremity: Normal inspection, Nontender, Normal color, Normal ROM, Normal temperature, Normal weight bearing. No: Jhonatan's sign - Neurological Neuro grossly intact: Yes Cognition: Normal Orientation: AAOx4 Osiris Coma Scale Eye Opening: Spontaneous [place] Coma Scale Verbal: Oriented Osir[place] Coma Scale Motor: Obeys Commands Osiris Coma Scale Total: 15 Speech: Normal Motor strength normal: LUE, RUE, LLE, RLE Sensory: Normal - Psychological Associated symptoms: Normal affect, Normal mood - Skin Skin Temperature: Warm Skin Moisture: Dry Skin Color: Normal Course - Re-evaluation Re-evalutation: 10/02/18 16:36 Strep and mono were negative upon further questioning patient states he does sleep with a fan on at nighttime and does snore and sleep with his mouth open possible etiology of the continued sore throat. Laboratory studies chest x-ray does not show any signs significant pathology at this time will likely cough is a sequela of healing up from his history of pneumonia. The plan to the patient that I would recommend to stop smoking. Patient will be treated with albuterol and a lidocaine neb for symptomatic relief. Patient is also educated by the use of honey at home. Patient will be discharged home - Vital Signs Vital signs: Temp Pulse Resp BP Pulse Ox 98.4 F 86 16 143/79 H 96 10/02/18 14:55 10/02/18 14:55 10/02/18 14:55 10/02/18 14:55 10/02/18 14:55 - Laboratory Result Diagrams: 10/02/18 15:25 10/02/18 15:25 Laboratory results interpreted by me: 10/02/18 15:25 Glucose 138 H Discharge - Discharge Clinical Impression: Sore throat, Cough, Tobacco use Condition: Good Disposition: HOME, SELF-CARE Instructions: Sore Throat ([facility]), Cough Suppressant & Expectorant Medications Additional Instructions: Your evaluation today does not reveal any significant pathology. Do believe that your cough is due to the continued healing process of your lungs from the recent diagnosis of pneumonia. I would expect that you will possibly continue to cough for the next 2 weeks. I would suggest using the lidocaine in your nebulizer that we gave you here in the ER 3 cc nebulized every 6 hours as needed for cough suppression. I would also recommend using the albuterol every 4 hours as needed for shortness of breath. I would recommend to stop smoking. I believe your sore throat is more related to environmental causes such as sleeping with a fan on. At this time your mono test and your strep test were negative. I would recommend [id number] cough drops to help with your sore throat I would also recommend using honey for cough suppression honey and tea throughout the day to help suppress her cough. Follow-up with your primary care physician return to ER if symptoms worsen. Prescriptions: Albuterol Sulfate [Proventil 0.5% Neb 2.5 mg/0.5 ml Vial.neb] 2.5 mg NEB Q4 PRN #[id number] vial.neb PRN Reason: Referrals: MICHELL LAUREN PA-C [Primary Care Provider] - Follow up in 3-5 days
[2018-10-02 17:51] VITALS: BP 139/71
== END 2018-10-02 17:25 | disposition home or self-care (01) ==
LOC: ER 14:51
DX: J02.9 Acute pharyngitis, unspecified (principal); R05 Cough; F17.200 Nicotine dependence, unspecified, uncomplicated
CPT/HCPCS: 94640; 99284; 36415; 87070; 87880; 85025; 86308; 80053; 71046; J3490; J7620

== ENCOUNTER 2019-03-03 09:57 | Day surgery (SDC) | payer BC ==
[~2019-03-03 09:57] MED LIST: PROPOFOL INJ 200 MG/20 ML VIAL IV ONE
[2019-03-03] MEDS ORDERED: PROPOFOL INJ 200 MG/20 ML VIAL IV ONE (11:23)
--- NOTE | 2019-03-03 11:54 | Operative Report ---
Operative Report DATE OF SURGERY: 03/03/19 Operative Report: The risks, benefits and alternatives of the procedure including the risk of bleeding, perforation requiring surgery have been explained to the patient in detail and informed consent has been obtained. Patient is placed in a left, lateral decubital position. Timeout was called. Propofol medication is administered. Rectal examination is done which did not reveal any masses, tears or fissures. An Olympus videoscope was introduced into the patient's rectum. The scope was then carefully advanced all the way to the cecum. The cecum was identified by the usual anatomical landmarks including the ileocecal valve as well as the appendiceal office. Photodocumentation is obtained. Scope was then sequentially pulled back via the rest segments of the colon including the ascending colon, hepatic flexure, transverse colon, splenic flexure, descending colon and finally into the rectosigmoid portions of the colon. Retroflexion maneuver is performed. PREOPERATIVE DIAGNOSIS: Family history of colorectal cancer. Colorectal cancer screening POSTOPERATIVE DIAGNOSIS: 5 polyps that were removed via snare polypectomy. One in the transverse colon, 2 in the sigmoid colon, 2 in the rectum. Internal hemorrhoids OPERATION: Colonoscopy with snare polypectomy SURGEON: BECKY ASHFORD ANESTHESIA: LMAC TISSUE REMOVED OR ALTERED: As noted above. COMPLICATIONS: None. ESTIMATED BLOOD LOSS: None. INTRAOPERATIVE FINDINGS: As noted above. PROCEDURE: Patient tolerated the procedure well. No immediate postprocedure complications are noted. Patient is discharged in good condition. Discharge date 03/03/2019. Discharge diet: Regular. Discharge activity: Regular. 2 to 3-week follow-up to discuss findings. Patient is instructed to call the office or proceed to the emergency room should there be any further questions. 3-year surveillance colonoscopy.
[2019-03-03 12:24] VITALS: BP 128/74
== END 2019-03-03 12:12 | disposition home or self-care (01) ==
LOC: END 09:57
PROVIDERS: ATTEND Internal Medicine Gastroenterology
DX: Z12.11 Encounter for screening for malignant neoplasm of colon (principal); K63.5 Polyp of colon; D12.5 Benign neoplasm of sigmoid colon; D12.3 Benign neoplasm of transverse colon; K64.8 Other hemorrhoids; Z80.0 Family history of malignant neoplasm of digestive organs; E78.5 Hyperlipidemia, unspecified; Z79.899 Other long term (current) drug therapy
CPT/HCPCS: 45385; 88305 ×2; J2704

== ENCOUNTER 2019-05-08 10:12 | Day surgery (SDC) | payer BC ==
[2019-05-08 11:32] VITALS: BP 123/74
--- NOTE | 2019-05-08 12:20 | Operative Report ---
Operative Report DATE OF SURGERY: 05/08/19 Operative Report: The risks benefits and alternatives of the procedure explained to the patient in detail and informed consent is obtained.A GIF Olympus video scope was inserted into the patient's mouth and hypopharynx, the esophagus is identified intubated and insufflated, the scope was then advanced through the esophagus stomach and duodenum, retroflexion maneuver is done, the esophagus stomach and first and second portions of the duodenum examined. PREOPERATIVE DIAGNOSIS: Gastroesophageal reflux disease POSTOPERATIVE DIAGNOSIS: Gastritis status post biopsy without Helicobacter pylori OPERATION: EGD with biopsy SURGEON: BECKY ASHFORD ANESTHESIA: LMAC TISSUE REMOVED OR ALTERED: As noted above COMPLICATIONS: None. ESTIMATED BLOOD LOSS: None. INTRAOPERATIVE FINDINGS: As noted above. PROCEDURE: Patient tolerated the procedure well. No immediate postprocedure complications are noted. Patient is discharged in good condition. Discharge date 05/08/2019. Discharge diet: Regular. Discharge activity: Regular. 2 to 3-week follow-up to discuss findings. Patient is instructed to call the office or proceed to the emergency room should there be any further problems or questions. Wait on the pathology.
== END 2019-05-08 11:33 | disposition home or self-care (01) ==
LOC: END 10:12
PROVIDERS: ATTEND Internal Medicine Gastroenterology
DX: K29.70 Gastritis, unspecified, without bleeding (principal); K21.9 Gastro-esophageal reflux disease without esophagitis; F17.210 Nicotine dependence, cigarettes, uncomplicated; E78.5 Hyperlipidemia, unspecified; Z68.38 Body mass index [BMI] 38.0-38.9, adult; Z86.010 Personal history of colon polyps
CPT/HCPCS: 43239; 88342 ×2; 88305 ×2; 00731; J2704; 731

== ENCOUNTER → 2019-12-27 | Outpatient (CLI) | payer BC ==
--- NOTE | 2019-12-27 16:15 | RADIOLOGY REPORT (SQ) ---
EXAM DESCRIPTION: KNEE LEFT 3 VIEWS COMPLETED DATE/TIME: 12/27/2019 4:06 pm REASON FOR STUDY: PAIN IN LEFT KNEE Z13.89 ENCOUNTER FOR SCREENING FOR OTHER DISORDER M54.5 LOW BA CK PAIN M25.562 PAIN IN LEFT KNEE COMPARISON: None. NUMBER OF VIEWS: Three views. TECHNIQUE: AP, lateral, and sunrise patella radiographic images acquired of the left knee. LIMITATIONS: None. FINDINGS: MINERALIZATION: Normal. BONES: No acute fracture or dislocation. No worrisome bone lesions. JOINT: No effusion. SOFT TISSUES: No soft tissue swelling. No radio-opaque foreign body. OTHER: No other significant finding. IMPRESSION: NEGATIVE STUDY OF THE LEFT KNEE. NO RADIOGRAPHIC EVIDENCE OF ACUTE INJURY. TECHNICAL DOCUMENTATION: JOB ID: [id number] 2010 [employer]- All Rights Reserved Reading location - IP/workstation name: [email or web address]
--- NOTE | 2019-12-27 16:33 | RADIOLOGY REPORT (SQ) ---
EXAM DESCRIPTION: LUMBAR SPINE COMPLETE COMPLETED DATE/TIME: 12/27/2019 4:06 pm REASON FOR STUDY: LOW BACK PAIN Z13.89 ENCOUNTER FOR SCREENING FOR OTHER DISORDER M54.5 LOW BACK P AIN M25.562 PAIN IN LEFT KNEE COMPARISON: None. NUMBER OF VIEWS: Five views including obliques. TECHNIQUE: AP, lateral, oblique, and sacral radiographic images acquired of the lumbar spine. LIMITATIONS: None. FINDINGS: MINERALIZATION: Normal. SEGMENTATION: Normal. No transitional anatomy. ALIGNMENT: Normal. VERTEBRAE: Maintained height. No fracture or worrisome bone lesion. DISCS: Disc spaces are narrowed at L4-5 and L5-S1 with small marginal osteophytes. POSTERIOR ELEMENTS: Hypertrophic facet changes at L5-S1. HARDWARE: None in the spine. PARASPINAL SOFT TISSUES: Normal. PELVIS: Intact as visualized. No fractures or worrisome bone lesions. SI joints intact. OTHER: No other significant finding. IMPRESSION: Degenerative disc disease, spondylosis, and facet arthropathy. TECHNICAL DOCUMENTATION: JOB ID: [id number] 2010 [employer]- All Rights Reserved Reading location - IP/workstation name: [email or web address]
[2019-12-28 08:43] LABS: ABSOLUTE EOSINOPHILS # (AUTO) 0.1 10^3/uL (0.0-0.6); ABSOLUTE LYMPHOCYTES (AUTO) 2.3 10^3/uL (0.5-4.7); ABSOLUTE MONOCYTES (AUTO) 0.5 10^3/uL (0.1-1.4); ABSOLUTE NEUT (AUTO) 2.9 10^3/uL (1.7-8.2); BASOPHILS % (AUTO) 0.6 % (0-2); EOSINOPHILS % (AUTO) 2.3 % (0-6); HEMATOCRIT 46.2 % (37.9-51.0); HEMOGLOBIN 16.5 g/dL (13.5-17.0); LYMPHOCYTES % (AUTO) 39.3 % (13-45); MEAN CORPUSCULAR HEMOGLOBIN 31.1 pg (27.0-33.4); MEAN CORPUSCULAR HGB CONC 35.7 g/dL (32.0-36.0); MEAN CORPUSCULAR VOLUME 87 fl (80-97); MONOCYTES % (AUTO) 8.1 % (3-13); PLATELET COUNT 270 10^3/uL (150-450); SEGMENTED NEUTROPHILS % (AUTO) 49.7 % (42-78); TOTAL CELLS COUNTED % (AUTO) 100 %; WHITE BLOOD COUNT 5.8 10^3/uL (4.0-10.5)
[2019-12-28 09:01] LABS: ALBUMIN 4.3 g/dL (3.5-5.0); ALKALINE PHOSPHATASE 79 U/L (38-126); ANION GAP 8 (5-19); ASPARTATE AMINO TRANSFERASE 27 U/L (17-59); BILIRUBIN,DIRECT 0.3 mg/dL (0.0-0.4); BILIRUBIN,TOTAL 0.5 mg/dL (0.2-1.3); BLOOD UREA NITROGEN 20 mg/dL (7-20); CALCIUM 9.7 mg/dL (8.4-10.2); CARBON DIOXIDE 29 mmol/L (22-30); CHLORIDE 104 mmol/L (98-107); CHOLESTEROL 222.34 mg/dL (0-200); GLUCOSE 93 mg/dL (75-110); POTASSIUM 4.4 mmol/L (3.6-5.0); TOTAL PROTEIN 7.5 g/dL (6.3-8.2); TRIGLYCERIDES 317 mg/dL (<150)
[2019-12-28 09:12] LABS: DIRECT LDL 150 mg/dL (<100)
[2019-12-28 09:15] LABS: VLDL CHOLESTEROL 63.4 mg/dL (10-31)
== END ==
LOC: OD 15:27
PROVIDERS: ATTEND Physician Assistant
DX: M54.5 Low back pain (principal); M25.562 Pain in left knee; E78.5 Hyperlipidemia, unspecified; F32.9 Major depressive disorder, single episode, unspecified; Z13.89 Encounter for screening for other disorder; M51.36 Other intervertebral disc degeneration, lumbar region; M47.896 Other spondylosis, lumbar region
CPT/HCPCS: 36415; 72110; 80053; 80061; 85025